=== PATIENT | female | born 1960 | race Caucasian/White ===

== ENCOUNTER 2023-01-06 18:41 | Emergency (ER) | payer SELFPAY ==
[~2023-01-06] VITALS: Ht 157.5 cm; Wt 80.0 kg
[2023-01-06 18:46] VITALS: TEMP 98.2; O2SAT 99
[2023-01-06 20:15] VITALS: BP 182/92; PULSE 81; RESP 18
[2023-01-06] MEDS ORDERED: HYDROCODONE/ACETAMINOPHEN 5/325MG TABLET PO ONE (20:15)
[2023-01-06] MEDS ORDERED: IBUP-2029 MT (21:38)
== END 2023-01-06 22:17 | disposition home or self-care (01) ==
LOC: ER 18:41
DX: M54.50 Low back pain, unspecified (principal); I10 Essential (primary) hypertension
CPT/HCPCS: 72100; 99283